=== PATIENT | female | born 1940 | race Caucasian/White ===

== ENCOUNTER 2018-07-07 07:58 | Outpatient (CLI) | payer MEDICARE ==
--- NOTE | 2018-07-07 09:37 | MRI ---
MRI LUMBAR SPINE WITHOUT CONTRAST: Date: 07-07-18 Comparison: None. History: Chronic low back pain radiating down bilateral hips/legs with numbness of the toes for one y ear. Chronic pain. Technique: Multiplanar, multisequence MR imaging of the lumbar spine is obtained without contrast. FINDINGS: The sagittal STIR imaging demonstrates no focal area of osseous marrow edema. At the L1 and L2 levels there are T1 and T2 hyperintense lesions, evidence of benign hemangiomata. There is mild anterolisthesis of L4 on L5 measuring 5 mm. On the basis of five lumbar type vertebral bodies, the conus medullaris terminates at the L1-2 level. T12-L1: Mild bilateral facet hypertrophy. Disc space narrowing, disc desiccation and mild disc bulge present with no significant central canal or neural foraminal stenosis. L1-2: Mild bilateral facet hypertrophy. Disc space narrowing and disc desiccation noted. There is a a nnular tear in the central/right paracentral region with an associated right paracentral disc herniat ion causing a mild degree of right lateral recess stenosis. There is no significant neural foraminal stenosis on either side. L2-3: Moderate bilateral facet hypertrophy. There is disc space narrowing and disc desiccation with a central/right paracentral disc herniation. There is mild superior migration. There is a mild to mode rate degree of associated right lateral recess stenosis. No significant neural foraminal stenosis. L3-4: There is disc space narrowing, disc desiccation and disc bulge. There is bilateral facet hypert rophy and hypertrophy of the ligamentum flavum, right greater than left. There is mild central canal stenosis with mild left neural foraminal stenosis. L4-5: There is moderate bilateral facet hypertrophy. There is moderate central canal stenosis associa madie with mild anterolisthesis as well as facet hypertrophy. There is a vacuum disc present. No signif icant neural foraminal stenosis noted on either side. L5-S1: Intervertebral disc height and signal intensity is grossly unremarkable. Mild bilateral facet hypertrophy. No significant central canal or neural foraminal stenosis. STIR imaging suggesting suggests small volume fluid within bilateral facet joints of L4-5. Imaged retroperitoneal structures demonstrate no acute findings. 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 This includes right s ided disc herniation at L1-2 and L2-3. There is also central canal stenosis at L4-5 with mild anterol isthesis and fluid within the facet joints. This can be seen on the basis of instability and thus fle xion and extension lateral imaging of the lumbar spine is advised. POS: DENNISE
== END 2018-07-07 07:59 | disposition home or self-care (01) ==
LOC: SCSMRI 07:58
PROVIDERS: ATTEND Family Medicine
DX: G89.29 Other chronic pain (principal); M51.26 Other intervertebral disc displacement, lumbar region; M48.061 Spinal stenosis, lumbar region without neurogenic claudication; M47.816 Spondylosis without myelopathy or radiculopathy, lumbar region; M43.16 Spondylolisthesis, lumbar region
CPT/HCPCS: 72148

== ENCOUNTER 2019-01-05 04:03 | Observation (INO) | payer MEDICARE ==
--- NOTE | 2019-01-05 04:48 | PDOC.FPRHP ---
- History PMHx: PSHx: FHx: Social: - Vital signs BP: [] HR: [] RR: [] Tmax: [] Pox: []% on [] Wt: [] FMR H&P: Upper Level - Plan Date/Time: 01/05/19 0448 I, [], have evaluated this patient and agree with findings/plan as outlined by procurement intern resident. Pertinent changes/additions are listed here.
[2019-01-05] MEDS ORDERED: Ondansetron PF 4 MG/2 ML Vial ONE (04:53)
[2019-01-05] MEDS ORDERED: Morphine 4 MG/ML VIAL ONE (04:53)
[2019-01-05 05:52] LABS: Troponin I Less than 0.010 ng/mL (< 0.028)
[2019-01-05 07:03] VITALS: BMI 41.3
[2019-01-05 08:37] LABS: Troponin I Less than 0.010 ng/mL (< 0.028)
[2019-01-05] MEDS ORDERED: Senokot S 8.6-50 MG TAB PO PRN (11:22)
[2019-01-05] MEDS ORDERED: Enoxaparin Sodium 40 MG/0.4 ML SYRINGE SC SCH (16:45)
[2019-01-05] MEDS: Acetaminophen 325 MG TAB PO PRN (17:06)
--- NOTE | 2019-01-05 18:39 | HP ---
PRIMARY CARE PHYSICIAN: Azar Dudley MD CHIEF COMPLAINT: Near syncope. HISTORY OF PRESENT ILLNESS: Ms. Wilson is a 78-year-old female, who reported to the [facility] last night after having a kind of sudden onset of mid upper chest, upper back pain that radiated up to her neck, bilateral shoulder pain. Pain initially located in the left shoulder and then radiated out. Reports, initially, short of breath. She denied any specific chest pain. Denied any cough, dyspnea, fever, or abdominal pain. She reports that she has a chronic leukocytosis and Dr. Dudley is aware. She had an initial troponin that was in the normal range. EKG showed beats per minute 74, first-degree AV block. The patient was subsequently admitted to the observation unit for further risk stratification and ACS rule out. PAST MEDICAL HISTORY: She does take blood pressure medication losartan for hypertension and takes aspirin, Tylenol, migraine type medication b.i.d. for her fibromyalgia. Has some reflux, irritable bowel. In the past, has had dysfunctional uterine bleeding, has had herpes zoster, peripheral neuropathy. SURGICAL HISTORY: Appendectomy, hysterectomy, and tonsillectomy. PSYCHIATRIC HISTORY: Anxiety. SOCIAL HISTORY: Denies any alcohol or drug use. She is a former tobacco smoker. She quit smoking more than 10 years ago. She lives at home with her family. FAMILY HISTORY: The patient reports that she was adopted and has recently found her biological family and she has significant cardiac history in her siblings. Also has a family history of cancer. KNOWN ALLERGIES: 1. Benadryl. 2. Codeine. 3. Hydrochlorothiazide. 4. Meperidine. 5. Sertraline. CURRENT MEDICATIONS: 1. Losartan 50 mg p.o. daily. 2. Excedrin Migraine b.i.d. REVIEW OF SYSTEMS: The patient reports feeling a little dizzy, near syncope. Denies any chest pain. Denies any dyspnea on exertion. Reports some left shoulder pain that radiated out to her back and up her neck. All other systems are reviewed and are negative unless mentioned in the HPI. PHYSICAL EXAMINATION: VITAL SIGNS: Blood pressure 168/92, pulse is 69, respirations 14, pulse ox is 98% on room air, and temperature is 98.1. CONSTITUTIONAL: The patient appears nontoxic, is alert and oriented to person, place, and time. HEENT: Head is atraumatic and normocephalic. Eyes; eyelids are normal to inspection. Pupils are equally round and reactive to light. ENT; mouth exam is normal. Mucous membranes are moist. NECK: Normal range of motion. Trachea is midline. RESPIRATORY/CHEST: Breath sounds are clear. Chest movement is symmetrical. CARDIOVASCULAR: Regular heart rate and rhythm. Heart sounds are normal. ABDOMEN: Soft. No tenderness is noted. Bowel sounds are heard. BACK: Normal range of motion. No tenderness on exam. EXTREMITIES: Upper extremities; normal range of motion, normal inspection, radial pulses are normal. Lower extremities; motor strength is normal, sensation intact, normal range of motion. No edema is noted. Pedal pulses are equal bilaterally. NEUROLOGIC: The patient is oriented to person, place, and time. Speech is normal. Cranial 2 through 12 grossly intact. VISUALIZED SKIN: Warm, dry, and normal in color. LABORATORY DATA: Troponins x3 are undetectable. Cholesterol within normal limits. Electrolytes within normal limits. Last A1c was 5.7, done in June 2018. TSH is 3.2. ASSESSMENT AND PLAN: 1. Atypical chest pain, with history of hypertension, symptoms, family history, the patient is admitted to the observation unit. We will obtain a stress test. Serial troponins are undetectable. 2. Hypertension. We will continue home medications. We will trend. 3. Leukocytosis, which appears stable, appears chronic. 4. Deep venous thrombosis prophylaxis and gastrointestinal prophylaxis have been started. 5. Hospital course is dependent on clinical findings. Job ID: [id number]
[2019-01-05] MEDS: Famotidine 20 MG TAB PO SCH (20:12)
[2019-01-06] MEDS ORDERED: Acetaminophen 325 MG TAB ONE (03:15)
[2019-01-06] MEDS ORDERED: Losartan 25 MG TAB PO SCH (09:00)
[2019-01-06] MEDS ORDERED: Enoxaparin Sodium 40 MG/0.4 ML SYRINGE SC SCH (09:00)
[2019-01-06] MEDS: Acetaminophen 325 MG TAB PO PRN (12:10)
[2019-01-06] MEDS: Famotidine 20 MG TAB PO SCH (12:10)
--- NOTE | 2019-01-06 14:13 | NM ---
CARDIAC SPECT: HISTORY: A 78-year-old female with chest pain and hypertension. Family history of coronary artery disease. TECHNIQUE: A myocardial perfusion scan was performed using the single isotope two-day protocol with 33 millicuri es of technetium 99m sestamibi, injected intravenously for rest and stress images. Pharmacologic str ess with adenosine was monitored and interpreted by Quentin Guzman, Nurse Practitioner. FINDINGS: Homogeneous tracer distribution is seen in the myocardial segments on stress and rest images without fixed or reversible defects. GATED SPECT LVEF: 83% WALL MOTION EXAM: Normal. IMPRESSION: Normal myocardial perfusion scan. POS: OFF
[2019-01-06 15:06] LABS: #Basophils 0.1 thou/uL (0.0-0.2); #Eosinphils 0.5 thou/uL (0.0-0.7); #Lymphocytes 3.2 thou/uL (1.20-3.40); #Monocytes 1.6 thou/uL (0.11-0.59); #Neutrophils 7.2 thou/uL (1.40-6.50); %Basophils 0.6 % (0.0-1.0); %Eosinophils 3.7 % (0.0-10.0); %Lymphocytes 25.8 % (21.0-51.0); %Monocytes 12.3 % (0.0-10.0); %Neutrophils 57.6 % (42.0-75.0); Hemoglobin 12.8 g/dL (12.0-16.0); Mean Corpuscular HGB CONC 32.6 g/dL (32.0-36.0); Mean Corpuscular Hemoglobin 32.3 pg (27.0-31.0); Mean Platelet Volume 6.8 fL (7.4-10.4); Platelet Count 282 thou/uL (130-400); RBC Distribution Width 11.9 % (11.5-14.5); Red Blood Cell (RBC) Count 3.96 mill/uL (4.20-5.40); White Blood Cell (WBC) Count 12.6 thou/uL (4.8-10.8)
[2019-01-06 15:25] LABS: Anion Gap 11 mmol/L (10-20); BUN (Urea Nitrogen) 11 mg/dL (9.8-20.1); Calc. Creatinine Clearance 95 mL/min (70-130); Calcium 9.5 mg/dL (7.8-10.44); Carbon Dioxide 27 mmol/L (23-31); Chloride 106 mmol/L (98-107); Estimated GFR-MDRD 67; Glucose 84 mg/dL (83-110); Sodium 140 mmol/L (136-145)
[2019-01-06 15:44] VITALS: BP 131/60; TEMP 97.9
--- NOTE | 2019-01-08 16:52 | EKG ---
Test Reason : Blood Pressure : / mmHG Vent. Rate : 074 BPM Atrial Rate : 074 BPM P-R Int : 224 ms QRS Dur : 092 ms QT Int : 414 ms P-R-T Axes : 047 -05 045 degrees QTc Int : 459 ms Sinus rhythm with 1st degree A-V block Possible Anterior infarct , age undetermined Abnormal ECG Confirmed by BLAKE MOJICA M.D. ([id number]), index editor KAYE MOORE ([id number]) on 01/08/2019 4:52:15 PM Referred By: Confirmed By:BLAKE MOJICA M.D.
== END 2019-01-06 17:05 | disposition home or self-care (01) ==
LOC: ERS 04:03 → 2SW 04:30
PROVIDERS: ADMIT Internal Medicine; ATTEND Internal Medicine
DX: R07.89 Other chest pain (principal); I10 Essential (primary) hypertension; D72.829 Elevated white blood cell count, unspecified; M79.7 Fibromyalgia; I44.0 Atrioventricular block, first degree; F41.9 Anxiety disorder, unspecified; K21.9 Gastro-esophageal reflux disease without esophagitis; K58.9 Irritable bowel syndrome, unspecified; Z90.710 Acquired absence of both cervix and uterus; Z87.891 Personal history of nicotine dependence; Z82.49 Family history of ischemic heart disease and other diseases of the circulatory system; Z88.5 Allergy status to narcotic agent; Z88.8 Allergy status to other drugs, medicaments and biological substances; Z79.82 Long term (current) use of aspirin; Z79.899 Other long term (current) drug therapy
CPT/HCPCS: 78452; 80048; 80061; 84443; 84484; 85025; 93005; 93017; 96372 ×2; 96374; 96375; 97139 ×2; 99285; A9500; G0378 ×2; 36415; J0153; J1650; J2270; J2405